=== PATIENT | female | born 1975 | race Two or more races ===

== ENCOUNTER 2025-02-20 18:26 | Emergency (ER) | payer MEDICAID, SELFPAY ==
[2025-02-20 18:52] VITALS: BP 137/85; PULSE 82; RESP 16; TEMP 36.7; O2SAT 97; BMI 29.5
--- NOTE | 2025-02-20 18:52 | PD.EDDENTL ---
ED Dental RME/HPI General Chief complaint: Dental/Oral/Throat Stated complaint: L) TOOTH PAIN Time Seen by Provider: 02/20/25 18:41 Arrival date/time: 02/20/25 18:26 49 year old female present to emergency room with c/o of left upper tooth pain, swelling for 1 day. LOCATION: teeth SEVERITY: Symptoms are described as being severe with limitations on activities of daily living CONTEXT: The patient is unable to identify any inciting events. DURATION/TIMING: The symptoms started approximately 1 day ASSOCIATED SYMPTOMS: The patient is unable to identify any other associated symptoms. MODIFYING FACTORS: The patient is unable to identify any alleviating or aggravating symptoms. PERTINENT ROS: no fevers, no cough, , no chest pain/shortness of breath no nausea,vomiting, diarrhea, no dizziness/headache no rash no loc/syncope episode no difficulty swallowing, REVIEW OF SYSTEMS: See History of Present Illness - with the exception of those mentioned in the history of present illness, all other systems reviewed and reported as negative GENERAL: In general the patient is awake, interactive, in an emergency department gurney. HEAD/EYES/EARS/NOSE/THROAT: left upper cheek swelling no airway obstruction no abscess no lugwigs noted. normo-cephalic, atraumatic, mucus membranes are moist, anicteric, palpebral conjunctiva is pink, trachea is midline. CARDIOVASCULAR: regular rate and regular rhythm, no murmurs, heart sounds are not distant, strong pulses in all four extremities that are equal and symmetric bilateral upper and lower extremities, normal capillary refill. CHEST/PULMONARY: normal chest rise and fall, good air movement, clear to auscultation bilaterally, normal inspiratory to expiratory ratios without evidence of respiratory distress. NECK: No midline/Paraspinal tenderness, no step off ROM/Strenght intact No Kernig and bruzinski sign. No trauma SKIN: warm, dry, well-perfused, no jaundice, no rash, no telangiectasias or petechia. PSYCH: calm, cooperative, no evidence of psychosis or agitation Related Data Previous Rx's ?Medication ?Instructions ?Recorded clindamycin HCl 150 mg capsule 450 mg (3 x 150 mg) PO Q8H 10 days 02/20/25 #90 caps ibuprofen 800 mg tablet (IBU) 800 mg PO TID PRN fever or pain 02/20/25 #30 tabs prednisolone sodium phosphate 30 30 mg PO QDAY 4 days #4 tabs 02/20/25 mg disintegrating tablet Allergies Allergy/AdvReac Type Severity Reaction Status Date / Time No Known Allergies Allergy Verified 02/20/25 18:32 Course Course Course Narrative: Presentation consistent with dental pain of tooth # No evidence of Migel's Angina, large abscess pocket, requirement for emergent extraction, or other complications. Provided prescription for clindamycin/prednisone? Patient informed to follow up with local dentist. Return to ER if pain uncontrolled, abscess that drains purulent fluid, high fevers, trouble swallowing, or other concerns.? Plan:? Discharge from ED? first dose given prior to discharge Rx: clindamycin 450mg tid for 10 days, predisone 30mg daily for 4 days? F/U with local dentist Informed to return to ED if has new or worsening symptoms. Expressed understanding of and agreement with plan and all questions answered. Quality Measures none Orders Category Date Time Status Acetaminophen Tab [Tylenol ES Tab] Med 02/20/25 18:52 Discontinued 1,000 mg PO X1 ONE Clindamycin [Cleocin] Med 02/20/25 18:52 Discontinued 450 mg PO X1 ONE predniSONE Med 02/20/25 18:52 Discontinued 60 mg PO X1 ONE Vital Signs Vital signs: Vital Signs Temperature 98.1 F 02/20/25 18:52 Pulse Rate 82 02/20/25 18:52 Respiratory Rate 16 02/20/25 18:52 Blood Pressure 137/85 H 02/20/25 18:52 Pulse Oximetry (%) 97 02/20/25 18:52 Oxygen Delivery Method Room Air 02/20/25 18:52 Dental / Oral Patient data External records reviewed:: [facility] previous records Clinical information provided by:: patient Social determinants that could affect healthcare access:: none Patient has the following chronic illnesses:: n/a How is presenting disease/condition affected by chronic disease/condition?: no chronic disease Evaluation data The following diagnostics were reviewed and interpreted by me:: other (specify) (n/a ) Lab and/or radiology exams considered but not ordered:: n/a Interpretation Summary: n/a Medications / Prescriptions Medications or Prescriptions considered but not ordered:: n/a Medication administrations:: Medication Administration History Discontinued Medications Acetaminophen (Acetaminophen 500 Mg Tablet) 1,000 mg PO X1 ONE Stop: 02/20/25 18:53 Last Admin: 03/30/25 19:06 Dose: 1,000 mg Documented By: RIDGE Clindamycin HCl (Clindamycin 150 Mg Capsule) 450 mg PO X1 ONE Stop: 02/20/25 18:53 Last Admin: 02/20/25 19:05 Dose: 450 mg Documented By: RIDGE Prednisone (Prednisone 20 Mg Tablet) 60 mg PO X1 ONE Stop: 02/20/25 18:53 Last Admin: 02/20/25 19:05 Dose: 60 mg Documented By: RIDGE as stated above Consultations Consultation(s) initiated? (list below): No Diagnosis Most likely diagnosis given after review of the tests above:: dental abscess Admission Indicated Admission indicated?: not indicated Admission Request Was there a request for admission?: No Disposition Plan Disposition Plan: Discharge Discharge Attestation Discharge Attestation: The patient and all family members were given an opportunity to ask questions and understood the discharge instructions. Discharge instructions specifically effects, indications for sooner follow up or return to the emergency department, and the expected course of current diagnosis. Patient condition: Stable Discharge Plan Plan Patient Disposition: HOME (Self Care) Health Concerns: Follow up with your dentist as directed Return to ED if symptoms worsen Prescriptions/Referrals Prescriptions/Med Rec: New clindamycin HCl 150 mg capsule 450 mg PO Q8H 10 Days Qty: 90 0RF prednisolone sodium phosphate 30 mg tablet,disintegrating 30 mg PO QDAY 4 Days Qty: 4 0RF ibuprofen [IBU] 800 mg tablet 800 mg PO TID PRN (Reason: fever or pain) Qty: 30 0RF Problem List Clinical Impression: Dental abscess Patient/Caregiver Discharge Instructions Education Materials: ED Abscess Antibiotic ... Print Language: Mongolian Stand Alone Forms: [employer] Award Info., Patient Portal Info Letter
[2025-02-20] MEDS: predniSONE 20 MG TABLET 60 MG PO (19:05)
[2025-02-20] MEDS: CLINDAMYCIN 150 MG CAPSULE 450 MG PO (19:05)
[2025-02-20] MEDS: ACETAMINOPHEN 500 MG TABLET 1000 MG PO (19:06)
--- NOTE | 2025-02-20 19:25 | PC.NURSE ---
no answer x 1 at 192. checked outside and lobby.
== END 2025-02-20 19:54 | disposition home or self-care (01) ==
LOC: SERX 19:07
PROVIDERS: Emergency Provider Emergency Medicine; PCP Family Medicine
DX: K04.7 Periapical abscess without sinus (principal)
CPT/HCPCS: 99282; J7512; A9270

== ENCOUNTER 2025-02-21 18:14 | Emergency (ER) | payer MEDICAID, SELFPAY ==
[2025-02-21 18:15] VITALS: BMI 31.3
[2025-02-21 18:25] VITALS: BP 179/92; PULSE 77; RESP 18; TEMP 36.7; O2SAT 98
--- NOTE | 2025-02-21 18:32 | XR_ITS ---
Examination: CT soft tissue neck, with intravenous contrast. 2-D coronal reconstructions. 2-D sagittal reconstructions. Date and time of exam :February 21, 20252022 hours INDICATIONS: Left-sided facial pain and swelling beginning 3 days ago, clinical diagnosis dental abscess. CTDI: vol (mGy):10.8 DLP: (mGycm):266 Technique: 1.25 mm axial sections of the neck of the obtained. Coronal and sagittal reconstructions have been obtained. Intravenous contrast administered 60 cc Isovue 370. Low dose protocols were performed. One or more of the following dose reduction techniques were used; automated exposure control, adjustment of the mA and/or KV according to patient size, use of iterative reconstruction technique. Findings: Soft tissue cellulitis pattern external to the left mandible Bilateral mandibular dental caries molar teeth, axial image 46 No soft tissue definite abscess No foreign body No encroachment upon the nasopharynx or oropharynx No tonsillar abscess Normal epiglottis. Thyromegaly with 6 mm right thyroid nodule. IMPRESSION: Bilateral mandibular dental caries molar teeth Cellulitis pattern external to the left mandible, no gerry soft tissue abscess
--- NOTE | 2025-02-21 18:34 | PD.EDRME ---
Rapid Medical Screening Exam RME Arrival date/time: 02/21/25 18:14 49 year old female present to Ed for c/o of dental pain,swelling, worsen today I have greeted and performed a focused initial assessment of this patient. A comprehensive ED assessment and evaluation of the patient, analysis of all test results, and completion of the medical decision making process will be conducted by additional ED providers. Chief Complaint: Dental/Oral/Throat Time Seen by Provider: 02/21/25 18:29 Vital signs: Vital Signs Temperature 98.0 F 02/21/25 18:25 Pulse Rate 77 02/21/25 18:25 Respiratory Rate 18 02/21/25 18:25 Blood Pressure 179/92 H 02/21/25 18:25 Pulse Oximetry (%) 98 02/21/25 18:25 Oxygen Delivery Method Room Air 02/21/25 18:25
[2025-02-21] MEDS: HYDROcodone/APAP 10/325 TAB PO (18:47)
[2025-02-21] MEDS: ONDANSETRON ODT 4 MG TABRAP PO (18:47)
[2025-02-21 19:02] LABS: Basophils % (Auto) 0 % (0-2.5); Eosinophils % (Auto) 0 % (0-10); Hematocrit 38.6 % (36.0-46.0); Hemoglobin 12.4 g/dL (12.0-16.0); Immature Granulocytes % (Auto) 0 % (0-0); Immature Granulocytes Auto 0.04 Thou/mm3 (0.00-0.00); Lymphocytes # (Auto) 3.6 Thou/mm3 (1.0-4.8); Lymphocytes % (Auto) 23 % (10-50); Mean Corpuscular HGB Conc 32.1 g/dl (31.0-37.0); Mean Corpuscular Hemoglobin 27.3 pg (25.0-35.0); Mean Corpuscular Volume 85 fL (80-100); Monocytes # (Auto) 1.5 Thou/mm3 (0.0-0.8); Monocytes % (Auto) 10 % (0-12); Neutrophils # (Auto) 10.1 Thou/mm3 (1.8-7.7); Neutrophils % (Auto) 66 % (37-80); Nucleated Red Blood Cell % 0 /100 WBC (0); Platelet Count 352 Thou/mm3 (140-440); RDW Standard Deviation 47.8 fL (36.4-46.3); Red Blood Count 4.55 Miln/mm3 (4.00-5.20); White Blood Count 15.3 Thou/mm3 (3.6-11.0)
[2025-02-21 19:11] LABS: HCG,Qualitative Serum Negative
[2025-02-21 19:26] LABS: Alanine Aminotransferase 19 U/L (10-49); Albumin, Serum 4.6 gm/dL (3.5-5.0); Albumin/Globulin Ratio 1.5 (1.2-2.2); Alkaline Phosphatase 111 U/L (46-116); Anion Gap 9 (7-16); Aspartate Amino Transferase 17 U/L (0-34); BUN/Creatinine Ratio 17 Ratio (12-20); Bilirubin,Total 0.4 mg/dL (0.3-1.2); Blood Urea Nitrogen 10 mg/dL (9-23); Calcium 9.4 mg/dL (8.3-10.6); Calcium (Corrected) 9.4 mg/dL (8.5-10.1); Carbon Dioxide 25.5 mMol/L (20.0-31.0); Chloride 107 mMol/L (98-107); Creatinine (Component) 0.6 mg/dL (0.6-1.3); Estimated Creatinine Clearance 85.5 mL/min (>60); Globulin 3.1 gm/dL (2.3-3.5); Glucose 105 mg/dL (74-106); Osmolality,Calculated 280 (275-295); Potassium 3.8 mMol/L (3.4-5.1); Procalcitonin < 0.04 ng/ml (0.0-0.49); Sodium 141 mMol/L (136-145); Total Protein 7.7 gm/dL (5.7-8.2); eGFR > 60 See Note
[2025-02-21] MEDS: KETOROLAC INJ 30 MG/ML VIAL IVP (19:54)
--- NOTE | 2025-02-21 22:02 | EDNOTE_ITS ---
ED Dental RME/HPI General Chief complaint: Dental/Oral/Throat Stated complaint: DENTAL PAIN SEEN YEST, CONT WORSE Time Seen by Provider: 02/21/25 18:29 Arrival date/time: 02/21/25 18:14 RME / HPI RME / HPI Narrative: 02/21/25 18:14 49 year old female present to Ed for c/o of dental pain,swelling, worsen today I have greeted and performed a focused initial assessment of this patient. A comprehensive ED assessment and evaluation of the patient, analysis of all test results, and completion of the medical decision making process will be conducted by additional ED providers. Dr. Krause?s Main ED Evaluation: 49yo female presents to the ED for a chief complaint of left lower dental pain. Patient states she was seen here yesterday for the same complaint, reporting she was prescribed antibiotics and Ibuprofen. She states she has been taking her antibiotics as prescribed. She has been taking her ibuprofen for pain management, but notes it is not helping, so she came in for further evaluation. She denies any fever, chills or any other associated symptoms. No known allergies. Related Data Previous Rx's ?Medication ?Instructions ?Recorded clindamycin HCl 150 mg capsule 450 mg (3 x 150 mg) PO Q8H 10 days 02/20/25 #90 caps ibuprofen 800 mg tablet (IBU) 800 mg PO TID PRN fever or pain 02/20/25 #30 tabs prednisolone sodium phosphate 30 30 mg PO QDAY 4 days #4 tabs 02/20/25 mg disintegrating tablet hydrocodone 10 mg-acetaminophen 1 tab PO Q6H PRN pain 4 days #14 02/21/25 325 mg tablet tabs Allergies Allergy/AdvReac Type Severity Reaction Status Date / Time No Known Allergies Allergy Verified 02/21/25 18:17 Review of Systems Review of Systems Systems Reviewed: All systems reviewed, normal except as documented Past Medical History Past Medical History CARDIAC: Negative Cardiac Disorders or Congestive Heart Failure RESPIRATORY: Negative Chronic Obstructive Pulmonary Disease (COPD) or Asthma GENITOURINARY: Negative Renal Disease ENDOCRINE: Negative Diabetes Mellitus Type 1 or Diabetes Mellitus Type 2 HEMATOLOGIC: Negative Sickle Cell Disease Social History SMOKING STATUS: Never smoker ED Exam Narrative Physical exam: GENERAL APPEARANCE: alert and oriented x 4, well-developed, well-nourished, no acute distress VITALS: All vitals were reviewed and the pulse ox is 99% on room air, which is normal according to my interpretation. HEENT: Normocephalic, atraumatic; pupils equal, round, reactive to light; EOMI; mucous membranes pink, moist; oropharynx clear; swelling to the left lower mandible; poor dentition, no gingival swelling, no trismus, no voice change NECK: Supple LUNGS: CTABL; no wheezes, no rales, no rhonchi HEART: Regular rate, regular rhythm; normal S1, S2; no murmurs ABDOMEN: non distended; normal BS; soft, no tenderness, no guarding, no rebound; no masses, no organomegaly, no hernia BACK: no CVA tenderness EXTREMITIES: atraumatic; no edema NEUROLOGIC: awake; alert and oriented x4; cranial nerves II-XII grossly intact; no focal sensory or motor deficits PSYCHIATRIC: appropriate mood and affect SKIN: warm, dry, normal color; no rashes Course Quality Measures none Orders Category Date Time Status CT Screening NOW Care 02/21/25 18:33 Completed IV [Insert IV] STAT Care 02/21/25 18:[address] soft tissue neck w con Stat Exams 02/21/25 18:32 Completed Blood Culture (Lab) Stat Lab 02/21/25 18:44 Results CBC Stat Lab 02/21/25 18:44 Completed CMP [Comprehensive Metabolic Panel] Stat Lab 02/21/25 18:44 Completed HCG,Qualitative Serum Stat Lab 02/21/25 18:44 Completed Lactic Acid [Lactate (Lactic Acid)] Stat Lab 02/21/25 18:44 Completed Procalcitonin Stat Lab 02/21/25 18:44 Completed HYDROcodone*/APAP 5/325 [[place] 5/325] Med 02/21/25 22:48 Discontinued 1 tab PO X1 ONE HYDROcodone/APAP 10/325 [[place] 10/325] Med 02/21/25 18:32 Discontinued 1 tab PO X1 ONE Ketorolac Inj [Toradol Inj] Med 02/21/25 18:33 Discontinued 30 mg IVP X1 ONE Ondansetron Odt [Zofran Odt] Med 02/21/25 18:32 Discontinued 4 mg PO X1 ONE Vital Signs Vital signs: Vital Signs Temperature 98.0 F 02/21/25 18:25 Pulse Rate 77 03/31/25 18:25 Respiratory Rate 18 02/21/25 18:25 Blood Pressure 179/92 H 02/21/25 18:25 Pulse Oximetry (%) 98 02/21/25 18:25 Oxygen Delivery Method Room Air 02/21/25 18:25 Dental / Oral MDM Narrative MDM Narrative:: Scribe Attestation: 02/21/25 Cailin Alvarado am scribing for and in the presence of Dr. Krause. Patient data External records reviewed:: [facility] previous records (Per chart review, patient was seen here yesterday for a dental abscess.) Clinical information provided by:: patient Social determinants that could affect healthcare access:: none Patient has the following chronic illnesses:: none How is presenting disease/condition affected by chronic disease/condition?: no chronic disease Evaluation data The following diagnostics were reviewed and interpreted by me:: lab results and radiology exam(s) Lab and/or radiology exams considered but not ordered:: none Interpretation Summary: WBC count is elevated at 15.3, CMP is normal, Lactic Acid is normal, Procalcitonin is normal, HCG is negative, according to my interpretation. ------- [facility] Report Signed Patient: JM TREADWELL Record#: [id number] Birthdate: 1975 Age/Sex: 49 / F Location: [facility] Attending Dr: Ordering Physician: Jakob Priest PA-C Date of Service: 02/21/25 Procedure(s): CT soft tissue neck w con Accession Number(s): [id number] cc: Yoni Fraser MD; Ankit Jones MD; Jakob Priest PA-C~ Examination: CT soft tissue neck, with intravenous contrast. 2-D coronal reconstructions. 2-D sagittal reconstructions. Date and time of exam :February 21, 2025 202 hours INDICATIONS: Left-sided facial pain and swelling beginning 3 days ago, clinical diagnosis dental abscess. CTDI: vol (mGy):10.8 DLP: (mGycm):266 Technique: 1.25 mm axial sections of the neck of the obtained. Coronal and sagittal reconstructions have been obtained. Intravenous contrast administered 60 cc Isovue 370. Low dose protocols were performed. One or more of the following dose reduction techniques were used; automated exposure control, adjustment of the mA and/or KV according to patient size, use of iterative reconstruction technique. Findings: Soft tissue cellulitis pattern external to the left mandible Bilateral mandibular dental caries molar teeth, axial image 46 No soft tissue definite abscess No foreign body No encroachment upon the nasopharynx or oropharynx No tonsillar abscess Normal epiglottis. Thyromegaly with 6 mm right thyroid nodule. IMPRESSION: Bilateral mandibular dental caries molar teeth Cellulitis pattern external to the left mandible, no gerry soft tissue abscess Dictated By: Ankit Jones MD Signed By: <Electronically signed by Ankit Jones MD in OV> 02/21/252042 Medications / Prescriptions Medications or Prescriptions considered but not ordered:: none Medication administrations:: Medication Administration History Discontinued Medications Hydrocodone Bitart/Acetaminophen (Hydrocodone/Apap 10/325 Tab) 1 tab PO X1 ONE Stop: 02/21/25 18:33 Last Admin: 02/21/25 18:47 Dose: 1 tab Documented By: KF Hydrocodone Bitart/Acetaminophen (Hydrocodone/Apap 5/325 Tablet) 1 tab PO X1 ONE Stop: 02/21/25 22:49 Last Admin: 02/21/25 22:57 Dose: 1 tab Documented By: EF Ketorolac Tromethamine (Ketorolac Inj 30 Mg/Ml Vial) 30 mg IVP X1 ONE Stop: 02/21/25 18:34 Last Admin: 02/21/25 19:54 Dose: 30 mg Documented By: GB Ondansetron HCl (Ondansetron Odt 4 Mg Tabrap) 4 mg PO X1 ONE; Protocol Stop: 02/21/25 18:33 Last Admin: 02/21/25 18:47 Dose: 4 mg Documented By: KF see above Consultations Consultation(s) initiated? (list below): No Diagnosis Dental Differential Diagnosis: dental caries, toothache and dental abscess Most likely diagnosis given after review of the tests above:: see clinical impression below Admission Indicated Admission indicated?: not indicated Admission Request Was there a request for admission?: No Disposition Plan Disposition Plan: Discharge Discharge Attestation Discharge Attestation: The patient and all family members were given an opportunity to ask questions and understood the discharge instructions. Discharge instructions specifically effects, indications for sooner follow up or return to the emergency department, and the expected course of current diagnosis. Patient condition: Stable Discharge Plan Plan Patient Disposition: HOME (Self Care) Disposition Comment: stable for discharge home Patient condition on transfer: Stable Prescriptions/Referrals Prescriptions/Med Rec: New hydrocodone-acetaminophen 10-325 mg tablet 1 tab PO Q6H MDD 4 tabs PRN (Reason: pain) 4 Days Qty: 14 0RF No Action clindamycin HCl 150 mg capsule 450 mg PO Q8H 10 Days Qty: 90 0RF prednisolone sodium phosphate 30 mg tablet,disintegrating 30 mg PO QDAY 4 Days Qty: 4 0RF ibuprofen [IBU] 800 mg tablet 800 mg PO TID PRN (Reason: fever or pain) Qty: 30 0RF Referrals: Yoni Fraser MD [Primary Care Provider] - In 1 week Problem List Clinical Impression: Dental infection Patient/Caregiver Discharge Instructions Discharge Activity: activity as tolerated Education Materials: Dental Abscess, ED Abscess Antibiotic ... Additional Instructions: It is very important that you take all of the antibiotics as directed until they are completely gone even if you feel better before that. You should take the pain medicine as directed as well. I have called in a prescription for hydrocodone with acetaminophen at your pharmacy. You can take up to 1 tab every 6 hours for pain. Please continue to take your ibuprofen as well You should see a dentist as soon as this infection improves. If you are not improving within 48 hours please return to the ER and we will help you. Print Language: Icelandic Stand Alone Forms: [employer] Award Info., Patient Portal Info Letter
[2025-02-21 22:11] VITALS: BP 149/81; PULSE 75; RESP 16; TEMP 36.6; O2SAT 99
[2025-02-21] MEDS: HYDROcodone/APAP 5/325 TABLET 1 TAB PO (22:57)
[2025-02-21 22:59] VITALS: BP 130/79; PULSE 70; RESP 16; O2SAT 100
== END 2025-02-21 23:04 | disposition home or self-care (01) ==
PROVIDERS: Physician Assistant; Emergency Provider Emergency Medicine; PCP Family Medicine
DX: K04.7 Periapical abscess without sinus (principal)
CPT/HCPCS: 36415; 70491; 80053; 83605; 84145; 84703; 85025; 87040; 96374; 99285; A4649; J1885; Q0162; Q9967; A9270